=== PATIENT | male | born 1975 | race Caucasian/White ===

== ENCOUNTER 2020-03-17 01:11 | Emergency (ER) | payer MEDICARE, OTHER ==
[~2020-03-17] VITALS: Ht 195.6 cm; Wt 108.9 kg
[2020-03-17] MEDS ORDERED: GABAPENTIN400 MG PO (01:25)
[2020-03-17] MEDS ORDERED: ABILIFY5 MG PO (01:25)
[2020-03-17] MEDS ORDERED: TRAZODONE HCL150 MG PO (01:26)
== END 2020-03-17 02:38 | disposition home or self-care (01) ==
LOC: ED 01:11
DX: R10.9 Unspecified abdominal pain (principal); F17.200 Nicotine dependence, unspecified, uncomplicated; Z79.899 Other long term (current) drug therapy
CPT/HCPCS: 80053; 83690; 85025; 96361; 96374; 96375; 99284-25; C9113; J7030

== ENCOUNTER 2020-07-23 07:09 | Day surgery (SDC) | payer MEDICARE, OTHER ==
[~2020-07-23] VITALS: Ht 182.9 cm; Wt 121.0 kg
[~2020-07-23 07:09] MED LIST: ABILIFY5 MG PO; GABAPENTIN400 MG PO; OMEPRAZOLE20 MG PO; SYMBICORT 16010.2 GM INH; TRAZODONE HCL150 MG PO
[2020-07-23] MEDS ORDERED: PEPCID20 MG PO (07:21)
--- NOTE | 2020-07-23 08:33 | NUR ---
07/23/20 0833 Harley Simons MD AT BEDSIDE REVIEWING PROCEDURE WITH PT. PT ORIENTED TO TIME AND SITUATION. FALLS ASLEEP EASILY.
--- NOTE | 2020-07-23 09:49 | OR ---
[facility] [address], [place] [address] Signed DATE OF OPERATION: 07/23/2020 SURGEON: Lauren Elizondo MD PREOPERATIVE DIAGNOSES: 1. Epigastric abdominal pain. 2. Father with pancreatic cancer. 3. History of diarrhea. POSTOPERATIVE DIAGNOSES: 1. Mild to moderate diffuse gastritis. 2. Small hiatal hernia (38-35 cm). PROCEDURE: EGD with CLOtest and biopsies of the duodenum and antrum. ESTIMATED BLOOD LOSS: None. INDICATIONS: Rafal is a 44-year-old gentleman who just spent quite a bit of time in our [facility] for his schizophrenia. He is now back in [place] for about a year and a half. He lives at a local adult care facility. He said he is doing much better. He said he gets to see his every day. He was having significant abdominal pain. He therefore went to the emergency room. His blood work was fine. A GI cocktail was quite helpful. He was also having some diarrhea. He said the diarrhea is now resolved. He had been on omeprazole twice a day and Pepcid once a day and said that has really helped. His primary care provider asked him to come for an upper endoscopy. There was some consideration for a colonoscopy, but since his diarrhea had resolved, he declined a colonoscopy at this time. I gave him a pamphlet on upper endoscopy and we looked at that together along with the risks including, but not limited to gas bloating, crampy abdominal pain, bleeding, perforation requiring surgery, and missed diagnosis. We had also discussed the need for IV conscious sedation. He had expressed understanding and wished to proceed. PROCEDURE NOTE: Rafal was taken into our endoscopy suite and placed in a supine semi-recumbent position. He was given a total of 6 mg of Versed and 100 mcg of fentanyl to cover the case. He was also given lidocaine spray for the posterior oropharynx. The adult gastroscope was introduced and advanced out into the third portion of the duodenum Electronically Signed By: LAUREN ELIZONDO MD 07/23/20 0949 PATIENT NAME: RAFAL MARTINEZ OPERATIVE REPORT DATE OF : 73 REPORT #: [id number] PHYSICIAN: LAUREN ELIZONDO MD PCP: JOCYELYN CELESTIN PA-C REPORT IS CONFIDENTIAL AND NOT TO BE RELEASED WITHOUT AUTHORIZATION [facility] [address], [place] [address] Signed without difficulty. The duodenum and pyloric channel were quite healthy. We went and took a biopsy out of the duodenum since he had a recent history of diarrhea. However, he states that is now resolved. The stomach showed mild to moderate diffuse erythematous changes. We went ahead and took a biopsy of the antrum for CLOtest as well as pathologic review. Upon retroflexion of scope, we see a small hiatal hernia. It measured out 38-35 cm from the incisors. The Z-line is very minimally disrupted. There was no Rpap's mucosa. There was no distal esophagitis. The middle and upper esophagus were unremarkable. After this, the gas was suctioned out and the gastroscope removed. Rafal tolerated the procedure quite well. RECOMMENDATIONS: I will see Rafal back in my office in 7 to 14 days to review his results. Lauren Elizondo MD ALB/MODL /[id number] cc: Joycelyn Elizondo MD Copies: LAUREN ELIZONDO MD ~ Electronically Signed By: LAUREN ELIZONDO MD 07/23/20 0949 PATIENT NAME: RAFAL MARTINEZ OPERATIVE REPORT DATE OF : 73 REPORT #: [id number] PHYSICIAN: LAUREN ELIZONDO MD PCP: JOYCELYN CELESTIN PA-C REPORT IS CONFIDENTIAL AND NOT TO BE RELEASED WITHOUT AUTHORIZATION
--- NOTE | 2020-07-23 10:11 | NUR ---
PT ALERT, ORIENTED AND ADMITTED HE WAS ANXIOUS ABOUT TODAY'S PROCEDURE. SPENT A MOMENT ENCOURAGING PT,ALL QUESTIONS ASKED ANSWERED. PT REQUESTED PRAYER AND THANKED ME FOR VISIT. WILL FOLLOW NEEDED
--- NOTE | 2020-07-24 10:39 | PATH ---
[facility] [address], [place] [address] Signed SPECIMEN(S): A DUODENAL BIOPSY SPECIMEN(S): B ANTRUM/PYLORUS BIOPSY SPECIMEN SOURCE: A. DUODENAL BIOPSY B. ANTRUM/PYLORUS BIOPSY CLINICAL HISTORY: Epigastric abdominal pain. Esophagogastroduodenoscopy. MICROSCOPIC DESCRIPTION: Histologic sections of all submitted blocks are examined by light microscopy. These findings, together with the gross examination, support the pathologic diagnosis. FINAL PATHOLOGIC DIAGNOSIS: A. Duodenum, biopsy: - Duodenal mucosa with no histopathologic abnormality. - Negative for increased intraepithelial lymphocytes. - Negative for dysplasia or malignancy. B. Stomach, antrum/pylorus, biopsy: - Antral mucosa with mild reactive gastropathy. - Negative for Helicobacter organisms on HE stain. - Negative for dysplasia or malignancy. NAL:cml:C2NR GROSS DESCRIPTION: Two specimens are received in two containers, labeled "MM." A. The specimen, labeled "MM, duodenum biopsy," is received in formalin and consists of one beard soft tissue fragment that measures 0.2 cm in greatest dimension. The specimen is entirely submitted in cassette (A1). B. The specimen, labeled "MM, antrum biopsy," is received in formalin and consists of one beard soft tissue fragment that measures 0.2 cm in greatest dimension. The specimen is entirely submitted in cassette (B1). JS (under the direct supervision of a pathologist) The Gross Description was prepared using a voice recognition system. The report was reviewed for accuracy; however, sound-alike word errors, addition and/or deletions may occur. If there is any question about this report, please contact Client Services. PATIENT NAME: RAFAL MARTINEZ PATHOLOGY DATE OF : 73 REPORT #: [id number] PHYSICIAN: YUN JAY PCP: JOYCELYN CELESTIN PA-C REPORT IS CONFIDENTIAL AND NOT TO BE RELEASED WITHOUT AUTHORIZATION [facility] [address] [place] [address] Signed PERFORMING LABORATORY: The technical component was performed by [employer] [place] [address] (Product Marketing Intern: Melissa Wang MD; CLIA# [id number]). Professional interpretation was performed by [employer] [facility], [address] [address] (CLIA# [id number]). Diagnostician: Shaina Lopez MD Pathologist Electronically Signed 07/24/2020 Copies: ~ PATIENT NAME: RAFAL MARTINEZ PATHOLOGY DATE OF : 73 REPORT #: [id number] PHYSICIAN: YUN JAY PCP: JOYCELYN CELESTIN PA-C REPORT IS CONFIDENTIAL AND NOT TO BE RELEASED WITHOUT AUTHORIZATION
== END 2020-07-23 09:00 | disposition home or self-care (01) ==
LOC: DS 07:09 → OPS 07:09 → DS 08:15 → OPS 08:15
PROVIDERS: ATTEND Colon & Rectal Surgery
PROC: 0DB78ZX Excision of Stomach, Pylorus, Via Natural or Artificial Opening Endoscopic, Diagnostic (ICD-10-PCS; 2020-07-23)
PROC: 0DB98ZX Excision of Duodenum, Via Natural or Artificial Opening Endoscopic, Diagnostic (ICD-10-PCS; principal; 2020-07-23 08:15)
DX: K29.70 Gastritis, unspecified, without bleeding (principal); K44.9 Diaphragmatic hernia without obstruction or gangrene; K21.9 Gastro-esophageal reflux disease without esophagitis; F20.9 Schizophrenia, unspecified; Z80.0 Family history of malignant neoplasm of digestive organs; J44.9 Chronic obstructive pulmonary disease, unspecified; N52.9 Male erectile dysfunction, unspecified; G62.9 Polyneuropathy, unspecified; Z87.81 Personal history of (healed) traumatic fracture; F17.200 Nicotine dependence, unspecified, uncomplicated; Z98.1 Arthrodesis status
CPT/HCPCS: 86677; G0500; J2250; J3010; J7121

== ENCOUNTER 2023-05-30 17:08 | Emergency (ER) | payer MEDICARE, OTHER ==
[~2023-05-30] VITALS: Ht 182.9 cm; Wt 147.0 kg
[~2023-05-30 17:08] MED LIST changes: +PEPCID20 MG PO
[2023-05-30] MEDS ORDERED: TOPIRAMATE100 MG PO (17:32)
[2023-05-30] MEDS ORDERED: SPIRIVA RESPIMAT4 GM INH (17:33)
[2023-05-30 17:44] LABS: BILIRUBIN, URINE NEGATIVE (negative); BLOOD/HGB, URINE LARGE (Negative); KETONE, URINE NEGATIVE (Negative); LEUK ESTERASE, URINE NEGATIVE (negative); NITRITE, URINE NEGATIVE (negative)
[2023-05-30 17:51] LABS: BACTERIA, URINE NONE SEEN /hpf (negative); CASTS, URINE NONE SEEN \\lpf; COLLECTION TYPE, URINE CLEAN CATCH; CRYSTALS, URINE AMORPHOUS PHOSPH 1+ (0-1+); EPITHELIAL CELLS, URINE 0 /lpf (0-1+); REFLEX CULTURE, URINE No (No); WHITE BLOOD CELLS, URINE 0-1 /HPF (0-5)
[2023-05-30 19:06] LABS: BASOPHILS 0.7 % (0-2); EOSINOPHILS 1.8 % (0-6); HEMOGLOBIN 14.3 g/dL (12.0-18.0); LYMPHOCYTES 16.2 % (24-44); MCH 34.2 (27-36); MCHC 35.8 g/dl (30-36); MCV 95.4 fl (81-99); MONOCYTES 6.1 % (0-12); NEUTROPHILS 75.2 % (39-80); PLATELET COUNT 284 K/uL (140-440); RDW 12.9 (10.5-15.0)
[2023-05-30 19:22] LABS: ALBUMIN 3.5 g/dL (3.4-5.0); ALBUMIN/GLOBULIN RATIO 0.97 (1.1-2.4); ANION GAP 12.6 (7-21); BILIRUBIN, TOTAL 0.3 ng/dL (0.2-1.0); BUN/CREATININE RATIO 11.94 (6.0-28.6); CALCIUM 8.4 mg/dL (8.5-10.1); CREATININE, SERUM 1.34 mg/dL (0.70-1.30); POTASSIUM 3.6 mmol/L (3.5-5.1); PROTEIN, TOTAL 7.1 g/dL (6.4-8.2)
[2023-05-30] MEDS ORDERED: HYDROCODON-ACE1 EA10 PO (19:31)
[2023-05-30] MEDS ORDERED: ONDANSETRON ODT4 MG PO (19:31)
[2023-05-30 19:48] VITALS: BP 131/89
== END 2023-05-30 19:49 | disposition home or self-care (01) ==
LOC: ED 17:08
PROVIDERS: Emergency Medicine
DX: N13.2 Hydronephrosis with renal and ureteral calculous obstruction (principal); Z87.891 Personal history of nicotine dependence; Z79.899 Other long term (current) drug therapy
CPT/HCPCS: 36415; 74176; 76870; 80053; 81001; 85025; 96374; 96375; 99284-25; A9270; J1170; J1885; J2405

== ENCOUNTER 2023-09-17 07:59 | Emergency (ER) | payer MEDICARE, OTHER ==
[~2023-09-17] VITALS: Ht 182.9 cm; Wt 144.8 kg
[~2023-09-17 07:59] MED LIST changes: +HYDROCODON-ACE1 EA10 PO; +ONDANSETRON ODT4 MG PO; +SPIRIVA RESPIMAT4 GM INH; +TOPIRAMATE100 MG PO
--- OUTSIDE RECORDS SUMMARY | 2023-09-17 08:02 | XMS ---
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 EDavian VISIT COUNT (12 MO.) 2 BRENDAN Carter Sonja TOTAL 2 NOTE: Visits indicate total known visits. 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
[2023-09-17 08:26] LABS: BILIRUBIN, URINE NEGATIVE (negative); BLOOD/HGB, URINE LARGE (Negative); KETONE, URINE NEGATIVE (Negative); LEUK ESTERASE, URINE NEGATIVE (negative); NITRITE, URINE NEGATIVE (negative); PH, URINE 5.5 (5-7)
[2023-09-17] MEDS ORDERED: SODIUM CHLORIDE 0.9% 1,000 ML IV ONE (08:30)
[2023-09-17 08:31] LABS: EPITHELIAL CELLS, URINE SQUAMOUS 1+ /lpf (0-1+); RED BLOOD CELLS, URINE 41-50 /hpf (0-5)
[2023-09-17 08:32] LABS: BACTERIA, URINE 1+ /hpf (negative); CASTS, URINE NONE SEEN \\lpf; COLLECTION TYPE, URINE CLEAN CATCH; CRYSTALS, URINE NONE SEEN (0-1+); REFLEX CULTURE, URINE No (No)
[2023-09-17 08:41] LABS: BASOPHILS 0.6 % (0-2); EOSINOPHILS 2.2 % (0-6); HEMATOCRIT 41.5 % (35.0-50.0); HEMOGLOBIN 14.7 g/dL (12.0-18.0); LYMPHOCYTES 16.3 % (24-44); MCH 33.9 (27-36); MCHC 35.4 g/dl (30-36); MCV 95.8 fl (81-99); NEUTROPHILS 72.9 % (39-80); PLATELET COUNT 215 K/uL (140-440); RBC 4.33 M/ul (4.3-5.7); RDW 13.4 (10.5-15.0)
[2023-09-17] MEDS ORDERED: ondansetron HCL 4 MG/2 ML VIAL IV ONE (08:45)
[2023-09-17] MEDS ORDERED: HYDROmorphone HCL 1 MG/ML SYR IV PRN (08:45)
[2023-09-17] MEDS ORDERED: KETOROLAC TROMETHAMINE 15 MG/ML VIAL IV ONE (08:45)
[2023-09-17 08:56] LABS: ALBUMIN 3.7 g/dL (3.4-5.0); ALBUMIN/GLOBULIN RATIO 1.09 (1.1-2.4); BILIRUBIN, TOTAL 0.5 ng/dL (0.2-1.0); BUN/CREATININE RATIO 12.41 (6.0-28.6); CALCIUM 8.6 mg/dL (8.5-10.1); CREATININE, SERUM 1.53 mg/dL (0.70-1.30); PROTEIN, TOTAL 7.1 g/dL (6.4-8.2)
[2023-09-17] MEDS ORDERED: TAMSULOSIN HCL 0.4 MG CAP PO ONE (09:30)
[2023-09-17] MEDS ORDERED: FLOMAX0.4 MG PO (09:35)
[2023-09-17] MEDS ORDERED: ONDANSETRON ODT8 MG PO (09:35)
[2023-09-17] MEDS ORDERED: HYDROCODON-ACE1 EA10 PO (09:35)
[2023-09-17 09:46] VITALS: BP 113/70
== END 2023-09-17 09:46 | disposition home or self-care (01) ==
LOC: ED 07:59
PROVIDERS: Emergency Medicine
DX: N13.2 Hydronephrosis with renal and ureteral calculous obstruction (principal); Z87.891 Personal history of nicotine dependence; Z79.899 Other long term (current) drug therapy
CPT/HCPCS: 36415; 74176; 80053; 81001; 85025; 96374; 96375; 96376; 99284-25; J1170; J1885; J2405; J7030

== ENCOUNTER 2023-09-30 09:35 | Emergency (ER) | payer MEDICARE, OTHER ==
[~2023-09-30] VITALS: Ht 195.6 cm; Wt 147.4 kg
[~2023-09-30 09:35] MED LIST changes: +FLOMAX0.4 MG PO; +ONDANSETRON ODT8 MG PO
--- OUTSIDE RECORDS SUMMARY | 2023-09-30 09:37 | XMS ---
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 EDavian VISIT COUNT (12 MO.) 3 [facility] TOTAL 3 NOTE: Visits indicate total known visits. ED/UCC VISIT TRACKING (12 MO.) 09/30/2023 09:35 BRENDAN Posada [place] TYPE: Emergency COMPLAINT: - MEDICAL CLEARANCE 09/17/2023 08:00 BRENDAN Posada OR TYPE: Emergency COMPLAINT: - R ABD PAIN DIAGNOSES: - Hydronephrosis with renal and ureteral calculous obstruction - Other care home (current) drug therapy - Personal history of nicotine dependence - Right lower quadrant pain 05/30/2023 17:08 BRENDAN Posada OR TYPE: Emergency COMPLAINT: - LEFT TESTICULAR PAIN DIAGNOSES: - Hydronephrosis with renal and ureteral calculous obstruction - Left testicular pain - Other care home (current) drug therapy - Personal history of nicotine dependence INPATIENT VISIT TRACKING (12 MO.) No inpatient visits to display in this time frame [email or web address]
[2023-09-30] MEDS ORDERED: ATORVASTATIN CA20 MG PO (09:49)
[2023-09-30 10:20] LABS: BASOPHILS 0.3 % (0-2); EOSINOPHILS 2.1 % (0-6); HEMATOCRIT 42.8 % (35.0-50.0); HEMOGLOBIN 14.6 g/dL (12.0-18.0); LYMPHOCYTES 19.5 % (24-44); MCH 33.1 (27-36); MCHC 34.2 g/dl (30-36); MCV 96.7 fl (81-99); MONOCYTES 7.9 % (0-12); NEUTROPHILS 70.2 % (39-80); PLATELET COUNT 243 K/uL (140-440); RBC 4.42 M/ul (4.3-5.7); RDW 12.9 (10.5-15.0)
[2023-09-30 10:28] LABS: BILIRUBIN, URINE NEGATIVE (negative); BLOOD/HGB, URINE NEGATIVE (Negative); KETONE, URINE NEGATIVE (Negative); LEUK ESTERASE, URINE NEGATIVE (negative); NITRITE, URINE NEGATIVE (negative); PH, URINE 7.5 (5-7)
[2023-09-30 10:47] LABS: ACETAMINOPHEN 0 ug/mL (10-30); ALBUMIN 3.6 g/dL (3.4-5.0); ALBUMIN/GLOBULIN RATIO 1.03 (1.1-2.4); ALCOHOL, MEDICAL <3 ng/dL (<3); ALKALINE PHOSPHATASE 86 U/L (46-116); ALT (SGPT) 47 U/L (14-59); ANION GAP 12.9 (7-21); AST (SGOT) 19 U/L (15-37); BILIRUBIN, TOTAL 0.6 ng/dL (0.2-1.0); BUN/CREATININE RATIO 11.51 (6.0-28.6); CARBON DIOXIDE 25 mmol/L (21-32); CHLORIDE 105 mmol/L (98-107); CREATININE, SERUM 1.39 mg/dL (0.70-1.30); GLOMERULAR FILTRATION RATE,EST 63 mL/min (>60); POTASSIUM 3.9 mmol/L (3.5-5.1); PROTEIN, TOTAL 7.1 g/dL (6.4-8.2); SALICYLATE 0.4 mg/dL (2.8-20.0); UREA NITROGEN 16 mg/dL (7-18)
[2023-09-30 10:51] LABS: AMPHETAMINES, URINE NEGATIVE (NEGATIVE); BARBITURATES, URINE NEGATIVE (NEGATIVE); BENZODIAZEPINE, URINE NEGATIVE (NEGATIVE); BUPRENORPHINE, URINE NEGATIVE (NEGATIVE); CANNABINOID, URINE NEGATIVE (NEGATIVE); COCAINE, URINE NEGATIVE (NEGATIVE); ECSTASY, URINE POSITIVE (NEGATIVE); FENTANYL, URINE NEGATIVE (NEGATIVE); METHADONE, URINE NEGATIVE (NEGATIVE); OPIATES, URINE NEGATIVE (NEGATIVE); OXYCODONE, URINE NEGATIVE (NEGATIVE); PHENCYCLIDINE, URINE NEGATIVE (NEGATIVE)
[2023-09-30 10:52] LABS: CALCIUM 8.5 mg/dL (8.5-10.1)
[2023-09-30 15:39] VITALS: BP 116/79
[2023-12-01] MEDS ORDERED: FAMOTIDINE20 MG PO (13:13)
[2023-12-01] MEDS ORDERED: HYDROCODON-ACE1 EA10 PO (14:15)
[2023-12-01] MEDS ORDERED: ONDANSETRON ODT4 MG PO (14:15)
== END 2023-09-30 15:39 ==
LOC: ED 09:35
PROVIDERS: Emergency Medicine
DX: Z04.6 Encounter for general psychiatric examination, requested by authority (principal); Z87.891 Personal history of nicotine dependence; Z79.899 Other long term (current) drug therapy
CPT/HCPCS: 36415; 80053; 80307; 81003; 84443; 85025; 99283; G0480

== ENCOUNTER 2023-12-03 11:08 | Emergency (ER) | payer MEDICARE, OTHER ==
[~2023-12-03] VITALS: Ht 182.9 cm; Wt 137.9 kg
[~2023-12-03 11:08] MED LIST changes: +ATORVASTATIN CA20 MG PO; +FAMOTIDINE20 MG PO
--- OUTSIDE RECORDS SUMMARY | 2023-12-03 11:09 | XMS ---
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 - 2 Visits in 30 Days CARE PROVIDERS -, [employer] Dentist: Chief Controller Center [facility] PHONE: [phone] -, Jose- Dentist: Chief Controller Center Current [facility] PHONE: [phone] [facility]/Center: Rural Health Current \F\ [facility] PHONE: [phone] Christian has no Care Guidelines for this patient. E.D. VISIT COUNT (12 MO.) 5 BRENDAN Perez TOTAL 5 NOTE: Visits indicate total known visits. 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 - Personal history of nicotine dependence 09/17/2023 08:00 BRENDAN Posada OR TYPE: Emergency COMPLAINT: - R ABD PAIN DIAGNOSES: - Hydronephrosis with renal and ureteral calculous obstruction - Other half-way (current) drug therapy - Personal history of nicotine dependence - Right lower quadrant pain 05/30/2023 17:08 BRENDAN Posada OR TYPE: Emergency COMPLAINT: - LEFT TESTICULAR PAIN DIAGNOSES: - Hydronephrosis with renal and ureteral calculous obstruction - Left testicular pain - Other half-way (current) drug therapy - Personal history of nicotine dependence INPATIENT VISIT TRACKING (12 MO.) No inpatient visits to display in this time frame [email or web address]
[2023-12-03 13:15] LABS: BILIRUBIN, URINE POSITIVE (negative); BLOOD/HGB, URINE NEGATIVE (Negative); KETONE, URINE TRACE (Negative); LEUK ESTERASE, URINE NEGATIVE (negative); NITRITE, URINE NEGATIVE (negative)
[2023-12-03] MEDS ORDERED: ondansetron HCL 4 MG/2 ML VIAL IV ONE (13:30)
[2023-12-03] MEDS ORDERED: SODIUM CHLORIDE 0.9% 1,000 ML IV ONE (13:30)
[2023-12-03] MEDS ORDERED: fentaNYL citrate 100 MCG/2 ML VIAL IV ONE (13:30)
[2023-12-03 14:03] LABS: BASOPHILS 0.3 % (0-2); EOSINOPHILS 0.6 % (0-6); HEMATOCRIT 42.3 % (35.0-50.0); HEMOGLOBIN 14.6 g/dL (12.0-18.0); LYMPHOCYTES 8.2 % (24-44); MCH 32.9 (27-36); MCHC 34.5 g/dl (30-36); MCV 95.2 fl (81-99); MONOCYTES 7.9 % (0-12); PLATELET COUNT 261 K/uL (140-440); RBC 4.45 M/ul (4.3-5.7); RDW 13.1 (10.5-15.0)
[2023-12-03 14:18] LABS: ALBUMIN 3.9 g/dL (3.4-5.0); ALBUMIN/GLOBULIN RATIO 1.05 (1.1-2.4); ANION GAP 13.9 (7-21); BUN/CREATININE RATIO 10.58 (6.0-28.6); CALCIUM 8.9 mg/dL (8.5-10.1); CREATININE, SERUM 1.7 mg/dL (0.70-1.30); POTASSIUM 3.9 mmol/L (3.5-5.1); PROTEIN, TOTAL 7.6 g/dL (6.4-8.2)
[2023-12-03] MEDS ORDERED: HYDROmorphone HCL 1 MG/ML SYR IV PRN (14:45)
[2023-12-03] MEDS ORDERED: SODIUM CHLORIDE 0.9% 1,000 ML IV PRN ×2 (14:45→16:15)
[2023-12-03] MEDS ORDERED: KETOROLAC TROMETHAMINE 15 MG/ML VIAL IV ONE (16:15)
[2023-12-03] MEDS ORDERED: TAMSULOSIN HCL 0.4 MG CAP PO ONE (16:15)
[2023-12-03 16:59] VITALS: BP 133/90
== END 2023-12-03 17:00 | disposition home or self-care (01) ==
LOC: ED 11:08
PROVIDERS: Emergency Medicine
DX: N13.2 Hydronephrosis with renal and ureteral calculous obstruction (principal); N17.9 Acute kidney failure, unspecified; F20.0 Paranoid schizophrenia; Z87.891 Personal history of nicotine dependence; Z79.899 Other long term (current) drug therapy
CPT/HCPCS: 36415; 51798; 74177; 80053; 81003; 82365; 85025; 96375; 99284-25; J1170; J1885; J2405; J3010; J7030; Q9967